=== PATIENT | female | born 1960 | race Caucasian/White ===

== ENCOUNTER → 2016-05-23 | Outpatient (CLI) | payer OTHER ==
--- NOTE | 2016-05-23 15:30 | RAD ---
Chest, 2 views, 05/23/2016: History: Shortness of breath Comparison is made to a study from 05/07/2016. The heart is mildly enlarged. The pulmonary vascularity is normal. Right lateral basilar pleural-parenchymal opacities have regressed. A previous CT study showed that these were due to partially loculated pleural fluid with underlying streaky infiltrate. There are mild persistent linear basilar opacities bilaterally, probably due to scarring. No new pulmonary abnormality is seen. The posterior costophrenic angles are sharp without evidence of significant free pleural fluid. Moderate hypertrophic spurring is present in the spine. IMPRESSION: 1. Cardiomegaly. 2. Resolving right basilar pleural/parenchymal opacities 3. No new abnormality is detected.
== END | disposition home or self-care (01) ==
LOC: RAD 14:50
PROVIDERS: ATTEND Internal Medicine Pulmonary Disease
DX: R06.02 Shortness of breath (principal); I51.7 Cardiomegaly
CPT/HCPCS: 36415; 71020; 85379

== ENCOUNTER → 2016-05-28 | Outpatient (CLI) | payer OTHER ==
[2016-05-23 19:45] VITALS: BP 217/90
== END | disposition home or self-care (01) ==
LOC: SPEC 14:51
PROVIDERS: ATTEND Nurse Practitioner Occupational Health
DX: N39.0 Urinary tract infection, site not specified (principal)
CPT/HCPCS: 87086

== ENCOUNTER → 2016-05-28 | Outpatient (CLI) | payer OTHER ==
[2016-05-23 19:45] VITALS: BP 217/90
--- NOTE | 2016-05-28 11:24 | RAD ---
EXAM: DIGITAL SCREEN BILAT W/CAD. HISTORY: Screening. COMPARISON: 03/25/2013 and 02/10/2012. FINDINGS: Digital mammography was performed. Computer-aided detection (CAD) was utilized. The breast parenchyma demonstrates scattered fibroglandular densities (tissue density B). No suspicious microcalcifications or architectural distortion is identified in either breast. Within the lateral right breast, 7 cm from nipple, there is a small asymmetry. Confident correlate on the MLO view is not identified. IMPRESSION: Asymmetry involving the lateral right breast seen only on the CC view. Recommend spot compression view for further evaluation. BI-RADS CATEGORY: 0 INCOMPLETE: NEEDS ADDITIONAL IMAGING EVALUATION AND/OR PRIOR MAMMOGRAMS FOR COMPARISON. RECOMMENDED FOLLOW-UP: ADD ADDITIONAL IMAGING PQRS compliance statement: Patient information was entered into a reminder system with a target due date for the next mammogram. Mammography is a sensitive method for finding small breast cancers, but it does not detect them all and is not a substitute for careful clinical examination. A negative mammogram does not negate a clinically suspicious finding and should not result in delay in biopsying a clinically suspicious abnormality. "Our facility is accredited by the [employer] Mammography [employer]."
== END | disposition home or self-care (01) ==
LOC: MAMMO 10:29
PROVIDERS: ATTEND Nurse Practitioner Family
DX: Z12.31 Encounter for screening mammogram for malignant neoplasm of breast (principal)
CPT/HCPCS: 77052; G0202; 77067

== ENCOUNTER → 2016-05-30 | Outpatient (CLI) | payer OTHER ==
[2016-05-23 19:45] VITALS: BP 217/90
--- NOTE | 2016-05-30 09:52 | RAD ---
EXAM: DIGITAL DIAGNOSTIC RT. HISTORY: Abnormal screening mammogram, further evaluation. COMPARISON: 05/28/2016, 03/25/2013. FINDINGS: Digital mammography was performed. Computer-aided detection (CAD) was utilized. Spot compression view of the lateral right breast with CC projection was obtained as well as a true lateral view of the right breast. The compression view demonstrates compressibility of the parenchyma. The parenchyma has a similar appearance to the 2013 study. No convincing abnormality is seen on the lateral view. IMPRESSION: No mammographic evidence of malignancy. BI-RADS CATEGORY: 1 NEGATIVE RECOMMENDED FOLLOW-UP: 12M 12 MONTH FOLLOW-UP PQRS compliance statement: Patient information was entered into a reminder system with a target due date for the next mammogram. Mammography is a sensitive method for finding small breast cancers, but it does not detect them all and is not a substitute for careful clinical examination. A negative mammogram does not negate a clinically suspicious finding and should not result in delay in biopsying a clinically suspicious abnormality. "Our facility is accredited by the [employer] Mammography Program."
== END | disposition home or self-care (01) ==
LOC: MAMMO 12:19
PROVIDERS: ATTEND Nurse Practitioner Family
DX: R92.8 Other abnormal and inconclusive findings on diagnostic imaging of breast (principal)
CPT/HCPCS: 77051; G0206; 77065

== ENCOUNTER → 2016-09-09 | Outpatient (CLI) | payer OTHER ==
[2016-05-23 19:45] VITALS: BP 217/90
[~2016-09-09] MED LIST: AMLO10TA2 PO; BUPIVACAINE MPF 0.25% 10 ML VIAL. ONE; IBUP200T43 PO; LABE200T2 PO; OMEP20TA63 PO; SPIR25TA3 PO; methylPREDNISolone ACETATE 80 MG/ML VIAL. ONE
--- NOTE | 2016-09-10 05:28 | PAIN ---
DATE OF SERVICE: INITIAL CONSULTATION FOR PAIN CLINIC CHIEF COMPLAINT: Left shoulder pain. HISTORY OF PRESENT ILLNESS: This is a 56-year-old female, who presents with a history of pain in the left shoulder for about 4 weeks, gradually increasing, not a result of any specific injury or action that she is aware of. It has been getting worse progressively, noticeable with daily activities, especially raising the arm past 90 degrees of abduction, over the head using repetitive motion such as lifting items or pulling or tugging things, and even exacerbated by picking up small items less than about 5 pounds such as her dog. The patient reports a throbbing pain, aching, cramping, getting worse at night, waking her from sleep occasionally - 2-3 times at night. It has not affected her ability to walk. It has not affected her bowel or bladder control. She is taking Motrin 800 mg 3 times daily, which has decreased pain by about 25%. The patient is doing some exercises on her own, some stretching and some physical therapy exercises, which she received from her physical therapist. She has not had any formal physical therapy at this time however, but is doing the exercises prescribed in the past. PAST MEDICAL HISTORY: Significant for hypertension and arthritis. PREVIOUS SURGERY: Included cholecystectomy and total knee replacement bilaterally. CURRENT MEDICATIONS: Include labetalol, amlodipine, Prilosec, ibuprofen, and spironolactone. ALLERGIES: THE PATIENT IS ALLERGIC TO IV DYE, AGAVE, COMPAZINE, METHADONE, AND CECLOR. FAMILY HISTORY: Significant for no major medical problems or conditions that she is aware of. SOCIAL HISTORY: The patient does not smoke, does not drink alcohol regularly, is , lives with her spouse, and lives locally. The patient is a registered nurse. REVIEW OF SYSTEMS: The patient's review of systems is positive for those items mentioned in the history of present illness. All systems reviewed and are otherwise negative. It is complete, full and well-documented on the patient's chart. PHYSICAL EXAMINATION: VITAL SIGNS: The patient's blood pressure is 142/71, pulse is 81, respirations are 18, temperature is 98.2 degrees Fahrenheit, height is 5 feet 2 inches, and weight is 220 pounds. GENERAL: The patient is awake, alert, oriented, and appropriate, very pleasant demeanor. HEENT: Head shows normocephalic, atraumatic. Extraocular movements are intact and symmetrical. Oral cavity shows mucous membranes moist and pink. Dentition is intact. NECK: Shows anterior throat supple without palpable lymphadenopathy noted. Swallow reflex is symmetrical. CHEST: Shows normal on inspection. Breath sounds are clear to auscultation bilaterally. HEART: Shows S1 and S2 clear. No murmurs auscultated. ABDOMEN: Soft, nontender, and nondistended. No palpable organomegaly with no rebound or guarding demonstrated. BACK: Shows spine grossly midline. Normal appearing thoracic kyphosis and lumbar lordotic curvature. No previous bruises, lesions, rashes, or scars are noted. The patient's upper extremities show deep tendon reflexes 2+ in the biceps and triceps tendons. Motor exam is strong with senior technical support engineer strength rated at 5/5, biceps and triceps flexion is 5/5 on the right, and approximately 4/5 on the left with biceps flexion secondary to pain in the anterior shoulder. Peripheral pulses are 2+ in the radial distribution. No peripheral edema is noted. No clubbing, no cyanosis. Upper extremities are warm and dry to touch, equal in color and appearance. The left shoulder shows significant pain with abduction past 90 degrees with significant pain in the anterior aspect and the lateral aspect of the deltoid and the lateral pectoralis region. With passive movement, this is reproduced as well with abduction past 90 degrees, anterior and posterior displacement is painful - more on the posterior displacement, but not anteriorly____ with reach activity. The patient shows some very mild tenderness over the acromioclavicular joint on the left, and the right shoulder shows full range of motion both actively and passively with no limitations and no pain elicited. IMPRESSION: 1. This is a 56-year-old female with an approximate 4-week history of increasing pain, left shoulder with range of motion as noted and activities. 2. Hypertension. 3. History of arthritis. PLAN: Options were discussed with the patient, including conservative medical management versus____ continued physical therapies, interventional techniques, and she elected to proceed with interventional techniques. We discussed a left intraarticular shoulder joint injection using fluoroscopic guidance. Risks were discussed including, but not limited to bleeding, infection, possibility of intravascular injection sequelae, spread of local anesthetic and numbness, pneumothorax, side effects of steroid medications, exposure to fluoroscopy, and poor results regarding pain control. The patient understands and wishes to proceed. The patient will return to clinic in approximately 2 weeks for followup as scheduled, and was counseled as to return appointment, activity level, and side effects to be aware of. 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 PROCEDURE: Left intraarticular shoulder joint injection using C-arm fluoroscopic guidance under sterile prep and drape using local anesthetic with 25-gauge needle. MEDICATION INJECTED: A total of 80 mg of Depo-Medrol plus a total of 3 mL of 0.25% bupivacaine after negative aspiration. CONDITION AT DISCHARGE: Stable. The patient tolerated procedure well, had no complications. DESTIN RITCHIE MD DR: BRAD/barry JOB#: [id number] / [id number]
== END | disposition home or self-care (01) ==
LOC: PNCL 12:03
PROVIDERS: ATTEND Anesthesiology
DX: M19.012 Primary osteoarthritis, left shoulder (principal); I10 Essential (primary) hypertension; M19.90 Unspecified osteoarthritis, unspecified site
CPT/HCPCS: 20610; 77002; J1040; J3490; 20605

== ENCOUNTER → 2016-09-22 | Outpatient (CLI) | payer OTHER ==
[2016-05-23 19:45] VITALS: BP 217/90
--- NOTE | 2016-09-23 03:59 | PAIN ---
DATE OF SERVICE: 09/22/2016 PROGRESS NOTE FOR PAIN CLINIC DIAGNOSES: Left shoulder joint pain with primary osteoarthritis, left shoulder joint. HISTORY OF PRESENT ILLNESS: This is a 56-year-old female, who returns for followup status post left shoulder joint injection x 1. The patient reports about 75% improvement, one injection on 09/09/2016. Reports the pain is again to return now; however, more noticeable with weightbearing left upper extremity repetitive motions even in activities of daily living such as getting dressed, putting on sleeve on the left arm is becoming more and more painful, still significantly improved from prior to previous exam, but the pain returning. Describes as aching, sharp pain radiating anywhere from 3 to 8 on a scale of 10, awakens her from sleep about twice a night. She has to reposition or take medication for. The patient reports no new motor or sensory deficits or other complaints. PHYSICAL EXAMINATION: VITAL SIGNS: Today, the patient's blood pressure is 172/81, respirations are 18, pulse 90, temperature is 98.1 degrees Fahrenheit, height is 5 feet 2 inches, weighs 220 pounds. GENERAL: The patient is awake, alert, oriented, appropriate, very pleasant demeanor. HEENT: Head shows normocephalic, atraumatic. Extraocular movements are intact, symmetrical. Oral cavity, mucous membranes are moist and pink. Dentition is intact. NECK: Shows anterior throat supple without palpable lymphadenopathy noted. Swallow reflex is symmetrical. CHEST: Shows normal on inspection. Breath sounds clear to auscultation bilaterally. HEART: Shows S1 and S2 clear. ABDOMEN: Soft, nontender, nondistended. No palpable organomegaly is noted. BACK: Shows spine grossly midline. EXTREMITIES: Upper extremities show deep tendon reflexes at 2+ in the biceps and triceps tendons. Motor exam is approximately 4 on a scale 5 with left carbon sequestration plant operator and biceps flexion, otherwise 5/5 with triceps and right side is 5/5 with carbon sequestration plant operator biceps and triceps flexion. Options were discussed with the patient at this time. The patient's old chart was reviewed as her current medication regimen updated. Current review of systems updated today as well and we will proceed with a second left shoulder joint intra-articular injection with fluoroscopic guidance. Risks were again discussed including, but not limited to bleeding, infection, possibility of epidural hematoma, subsequent neurologic compromise, dural punctures, headaches, spinal cord and/or nerve damage, side effects of steroid medication pneumothorax and poor results regarding pain control. The patient understands and wishes to proceed. The patient will return to clinic in approximately 2 weeks for followup, was counseled on return appointment, activity level and side effects to be aware of. DIAGNOSES: Primary osteoarthritis, left shoulder joint with left shoulder joint pain. PROCEDURE: Left intra-articular shoulder joint injection with fluoroscopic guidance using sterile prep and drape and local anesthesia. MEDICATION INJECTED: A total of 80 mg Depo-Medrol plus a total of 3 mL of 0.25% bupivacaine. CONDITION AT DISCHARGE: Stable. The patient tolerated procedure well, had no complications. DESTIN RITCHIE MD DR: BRAD/nts JOB#: [id number] / [id number]
== END | disposition home or self-care (01) ==
LOC: PNCL 14:39
PROVIDERS: ATTEND Anesthesiology
DX: M19.012 Primary osteoarthritis, left shoulder (principal)
CPT/HCPCS: 20610; 77002; J1040; J3490

== ENCOUNTER → 2016-10-03 | Outpatient (CLI) | payer OTHER ==
[2016-05-23 19:45] VITALS: BP 217/90
--- NOTE | 2016-10-04 02:11 | PAIN ---
DATE OF SERVICE: 10/03/2016 DIAGNOSES: Left shoulder joint pain with primary osteoarthritis, left shoulder. HISTORY OF PRESENT ILLNESS: The patient is a 56-year-old female who returns for followup status post left shoulder joint injections x 2, last seen on 09/22/2016. The patient reports that she did better. It took her few days to kick in, but about 50% improvement overall, still significant pain in the left shoulder joint itself, though with daily activities, using the arm with any repetitive motions, reaching over her head, getting dressed, putting her arms to her sleeve, etc. The patient reports pain as a 9 on a scale of 10 at its worse, 3 on ____ and 3 currently, localized to the left shoulder itself with some radiation into the anterior deltoid, anterior biceps, but only rarely. The patient reports it does not get better with rest, significantly is waking her from sleep when she lays on her left side, on her left arm or shoulder. She has repositioned to get the pain decreased. The patient reports otherwise no new motor or sensory deficits or other complaints. PHYSICAL EXAMINATION: VITAL SIGNS: The patient's blood pressure 161/104, pulse 93, respirations are 20, and temperature 98.1 degrees Fahrenheit. GENERAL: The patient is awake, alert, oriented, appropriate, very pleasant demeanor. HEENT: Head shows normocephalic and atraumatic. Extraocular movements are intact, symmetrical. Oral cavity, mucous membranes are moist and pink. Dentition is intact. NECK: Shows anterior throat supple without palpable lymphadenopathy noted. Swallow reflex is symmetrical. CHEST: Shows normal on inspection. Breath sounds clear to auscultation bilaterally. HEART: Shows S1 and S2 clear. ABDOMEN: Soft, nontender, and nondistended. BACK: The patient's upper extremities shows significant tenderness with persistence and abduction of the shoulder to 90 degrees on the left side only. Right side is full range of motion without difficulty or without pain with resistance in both abduction and anterior, posterior. The patient's deep tendon reflex is 2+ in the biceps and triceps tendons. Motor exam is strong with employee relations assistant strength rated at 5/5 and equal. Options were discussed with the patient. The patient's old chart was reviewed as her current medication regimen updated. Current review of systems updated today as well. We will proceed with left intra-articular shoulder joint injections, third in the series with fluoroscopic guidance. Risks were again discussed including, but not limited to bleeding, infection, possibility of intravascular injection sequelae, spread of local anesthetic and numbness, pneumothorax, side effects of steroid medications, exposure to fluoroscopy and poor results regarding pain control. The patient understands and wishes to proceed. The patient will return to clinic in approximately 2 weeks for followup, was counseled on return appointment to follow as side effects to be aware of. DIAGNOSIS: Primary osteoarthritis, left shoulder joint with left shoulder pain. PROCEDURE: Left intraarticular shoulder joint injection using C-arm fluoroscopic guidance under sterile prep and drape using local anesthetic. MEDICATIONS INJECTED: Depo-Medrol 80 mg total and total of 4 mL of 0.25% bupivacaine. CONDITION AT DISCHARGE: Stable. The patient tolerated the procedure well, had no complications. DESTIN RITCHIE MD DR: BRAD/barry JOB#: [id number] / [id number]
== END | disposition home or self-care (01) ==
LOC: PNCL 12:43
PROVIDERS: ATTEND Anesthesiology
DX: M19.012 Primary osteoarthritis, left shoulder (principal)
CPT/HCPCS: 20610; J1040; J3490

== ENCOUNTER → 2017-03-19 | Outpatient (CLI) | payer OTHER ==
[2016-05-23 19:45] VITALS: BP 217/90
[~2017-03-19] MED LIST changes: +IOHEXOL 180 MG/ML 10 ML VIAL. ONE
--- NOTE | 2017-03-20 11:48 | PAIN ---
DATE OF SERVICE: 03/19/2017 PROGRESS NOTE FOR PAIN CLINIC DIAGNOSES: 1. Left shoulder joint pain with osteoarthritis of the shoulder. 2. Left hip joint pain with osteoarthritis of the left hip. HISTORY OF PRESENT ILLNESS: The patient is a 56-year-old female who returns for followup status post previous shoulder joint injections, most recently on 09/23/2016. The patient did very well with near 100% improvement in the pain in her left shoulder. Her chief complaint today is left hip joint pain, which has been increasing over the past about 2 months with activity, walking, standing, change in positions, climbing stairs, especially putting all of her weight on her left leg, significant pain in the left hip and radiates to the groin on the left side with weightbearing, much better with sitting or lying down, reports it does not awaken her from sleep at all times as she laid on the left side and it can sporadically awaken her from sleep. She has been repositioning to get back to sleep. The patient reports pain is aching, dull and sometimes shooting and radiating to the groin, rates it 10 on a scale of 10 at its worst, is an 8 on average and 6 at least and is 8 a today. The patient reports no new motor or sensory deficits. No new bowel or bladder incontinence. We tried a Medrol Dosepak in the past and it did not help the pain significantly in her left hip. PAST MEDICAL HISTORY: Significant for hypertension, arthritis, cholecystectomy and bilateral total knee replacement. CURRENT MEDICATIONS: Include labetalol, spironolactone, amlodipine, omeprazole and Motrin. ALLERGIES: THE PATIENT IS ALLERGIC TO IV DYE, , COMPAZINE, METHADONE and CECLOR. FAMILY HISTORY: Significant for no major medical conditions. SOCIAL HISTORY: The patient does not smoke, does not drink alcohol regularly, lives with her spouse, is and is a registered nurse. REVIEW OF SYSTEMS: The patient's review of systems is positive for those items mentioned in history of present illness. All systems reviewed and otherwise negative. It is complete, full and well documented on the patient's chart. PHYSICAL EXAMINATION: VITAL SIGNS: The patient's blood pressure is 151/95, pulse 76, respirations 18 and temperature is 99.0 degrees Fahrenheit. GENERAL: The patient is awake, alert, oriented, appropriate and very pleasant demeanor. HEENT: Head shows normocephalic and atraumatic. Extraocular movements are intact and symmetrical. Oral cavity: Mucous membranes moist and pink. Dentition is intact. NECK: Shows anterior throat supple without palpable lymphadenopathy noted. Swallow reflex is symmetrical. CHEST: Shows normal on inspection. Breath sounds are clear to auscultation bilaterally. HEART: Shows S1 and S2 clear. No murmurs auscultated. ABDOMEN: Obese, soft, nontender and nondistended. No palpable organomegaly. No rebound or guarding demonstrated. BACK: Shows spine grossly in the midline. Slight exaggeration of thoracic kyphosis and mild flattening of lumbar lordotic curvature. No previous bruises, lesions, rashes or scars are noted. The patient has good rotation motion both the cervical spine and lumbar spine without difficulty with flexion, extension and rotation, right and left as well. The patient's lower extremities showed deep tendon reflexes at 2+ in the patellar, 1+ tendo calcaneus tendons. Previous well-healed surgical scars noted over the knees bilaterally. No peripheral edema is noted. Peripheral pulses are 1+ posterior tibial bilaterally with external rotation of the left hip shows positive Jose's sign, which is tender with external rotation and posterior displacement, right side is negative. The patient is able to stand on her toes without difficulty or loss of balance, walked with a gait favoring the left lower extremity with a limp, not using any assistive devices such as canes or walkers. Options were discussed with the patient and the patient's old chart was reviewed as well as her current medication regimen updated. Current review of systems updated today as well as noted. We will proceed with a left intra-articular hip joint injection using C-arm fluoroscopic guidance. Risks were discussed including but not limited to bleeding, infection, possibility of intravascular injection sequelae, spread of local anesthetic and numbness, side effects of steroid medications, exposure to fluoroscopy and poor results regarding pain control. The patient understands and wishes to proceed. The patient will return to clinic in approximately 2 weeks for followup, was counseled on return appointment, activity level and side effects to be aware of. Also discussed the patient's medication management and will change her from Celebrex to meloxicam as the Celebrex is not well covered with her insurance provider and is quite expensive. The patient was given instruction as well as side effects to be aware to take medication once daily. The patient will follow up as scheduled. DIAGNOSIS: Primary osteoarthritis, left hip joint with left hip joint pain. PROCEDURE: Left intra-articular hip joint injection using C-arm fluoroscopic guidance under sterile prep and drape using local anesthetic. MEDICATION INJECTED: A total of 80 mg Depo-Medrol plus 3 mL of 0.25% bupivacaine. CONDITION AT DISCHARGE: Stable. The patient tolerated procedure well, had no complications. DESTIN RITCHIE MD DR: BRAD/barry JOB#: [id number] / [id number]
== END | disposition home or self-care (01) ==
LOC: PNCL 13:36
PROVIDERS: ATTEND Anesthesiology
DX: M16.12 Unilateral primary osteoarthritis, left hip (principal); M19.012 Primary osteoarthritis, left shoulder; M19.91 Primary osteoarthritis, unspecified site; Z90.49 Acquired absence of other specified parts of digestive tract; Z88.8 Allergy status to other drugs, medicaments and biological substances; Z88.6 Allergy status to analgesic agent; Z88.1 Allergy status to other antibiotic agents; Z91.041 Radiographic dye allergy status
CPT/HCPCS: 20610; J1040; J3490; 77002

== ENCOUNTER → 2017-04-17 | Outpatient (CLI) | payer OTHER ==
[2016-05-23 19:45] VITALS: BP 217/90
[~2017-04-17] MED LIST changes: -IBUP200T43 PO; +IBUP200T44 PO; +MELO15TA23 PO
--- NOTE | 2017-04-17 20:33 | PAIN ---
DATE OF SERVICE: 04/17/2017 DIAGNOSES: 1. Left hip joint pain with primary osteoarthritis, left hip joint. 2. Left shoulder joint pain with primary osteoarthritis, left shoulder joint. HISTORY OF PRESENT ILLNESS: The patient is a 56-year-old female who returns for a followup status post left intraarticular hip joint injection on 03/19/2017. The patient did very well with this with about 75% improvement overall. The patient reports pain is returning now, however, in the left hip, worse with standing, walking, changing positions, climbing up stairs, putting any type of weight all on her left side with steps, stepping up on curbs, etc. The patient reports it is radiating to the left anterior groin as well as into the posterior hip and gluteus. The patient reports it is much worse with walking, better with sitting or lying down. It awakens her from sleep occasionally, but not every night, sometimes as early as 3 or 4 hours into sleep, though she can usually reposition and if she is not lying on her left side, it generally let her sleep through the night. The patient reports her pain is a 6-7 on average, is 9 at its worst and a 4 at its least and is a 6 today. The patient reports no new motor or sensory deficits, no new bowel or bladder incontinence or other complaints. PHYSICAL EXAMINATION: VITAL SIGNS: The patient's blood pressure is 171/80, pulse is 87, respirations 18, temperature is 98.2 degrees Fahrenheit, height is 5 feet 2 inches, weight is 220 pounds. GENERAL: The patient is awake, alert, oriented, appropriate, has a very pleasant demeanor. HEENT: Shows normocephalic, atraumatic. Extraocular movements are intact, symmetrical. Oral cavity shows mucous membranes are moist and pink. Dentition is intact. NECK: Shows anterior throat is supple without palpable lymphadenopathy noted. Swallow reflex is symmetrical. CHEST: Shows normal with inspection. Breath sounds clear to auscultation bilaterally. HEART: Shows S1, S2 clear. No murmurs auscultated. ABDOMEN: Soft, nontender, nondistended. No palpable organomegaly is noted. MUSCULOSKELETAL: Back shows spine grossly in the midline. Normal appearing thoracic kyphosis and lumbar lordotic curvature. The patient's lower extremities show deep tendon reflexes 2+ in patellar, 1+ tendo-calcaneus tendons. Motor exam is strong with 5/5 dorsiflexion and extension, quadriceps and hamstring flexion and symmetrical. The patient has a positive Jose sign on the left with external rotation of the left hip, but negative on the right. Peripheral pulses are 1+ posterior tibial. No peripheral edema is noted bilaterally. PLAN: Options were discussed with the patient. The patient's old chart was reviewed as her current medication regimen and updated. Current review of systems updated today as well. We will proceed with a left intraarticular hip joint injection with fluoroscopic guidance. Risks were again discussed including, but not limited to bleeding, infection, possibility of intravascular injection sequelae, spread of local anesthetic and numbness, side effects of steroid medication, exposure to fluoroscopy and poor results regarding pain control. The patient understands and wished to proceed. The patient to return to the clinic in approximately 2 weeks for a followup, was counseled to return appointment, activity level and side effects to be aware of. DIAGNOSIS: Primary osteoarthritis, left hip joint with hip joint pain. PROCEDURE: Left intraarticular hip joint injection using C-arm fluoroscopic guidance under sterile prep and drape using local anesthetic. MEDICATIONS INJECTED: A total of 80 mg Depo-Medrol plus total of 3 mL of 0.25% bupivacaine with negative aspiration. CONDITION AT DISCHARGE: Stable. The patient tolerated the procedure well, had no complications. DESTIN RITCHIE MD DR: BRAD/barry JOB#: [id number] / [id number]
== END | disposition home or self-care (01) ==
LOC: PNCL 09:53
PROVIDERS: ATTEND Anesthesiology
DX: M16.12 Unilateral primary osteoarthritis, left hip (principal); M19.012 Primary osteoarthritis, left shoulder; Z88.6 Allergy status to analgesic agent; Z88.1 Allergy status to other antibiotic agents; Z91.041 Radiographic dye allergy status; Z91.048 Other nonmedicinal substance allergy status
CPT/HCPCS: 20610; 77002; J1040; J3490

== ENCOUNTER → 2017-06-19 | Outpatient (CLI) | payer OTHER ==
[~2017-06-19] MED LIST changes: -AMLO10TA2 PO; +BUPIVACAINE MPF 0.25% 10 ML VIAL.; -BUPIVACAINE MPF 0.25% 10 ML VIAL. ONE; -IBUP200T44 PO; -IOHEXOL 180 MG/ML 10 ML VIAL. ONE; -LABE200T2 PO; -MELO15TA23 PO; -OMEP20TA63 PO; -SPIR25TA3 PO; +methylPREDNISolone ACETATE 80 MG/ML VIAL.; -methylPREDNISolone ACETATE 80 MG/ML VIAL. ONE
== END | disposition home or self-care (01) ==
LOC: PNCL 08:56
DX: M16.12 Unilateral primary osteoarthritis, left hip (principal); Z91.041 Radiographic dye allergy status; Z88.8 Allergy status to other drugs, medicaments and biological substances; Z91.048 Other nonmedicinal substance allergy status
CPT/HCPCS: 20610; 77002; J1040; J3490

== ENCOUNTER → 2017-07-21 | Outpatient (CLI) | payer OTHER | END | disposition home or self-care (01) | LOC: MAMMO 07:54 | DX: Z12.31 Encounter for screening mammogram for malignant neoplasm of breast (principal) | CPT/HCPCS: 77063; 77067 ==

== ENCOUNTER → 2017-10-21 | Day surgery (SDC) | payer OTHER ==
[~2017-10-21] MED LIST changes: -BUPIVACAINE MPF 0.25% 10 ML VIAL.; +CLINDAMYCIN 900MG PREMIX 50 ML IV; +DEXAMETHASONE SOD PHOS 20 MG/5 ML VIAL.; +EPINEPHrine VIAL 30 MG/30 ML VIAL; +GLYCOPYRROLATE 1 MG/5 ML VIAL.; +IV RINGERS,LACTATED 1000ML 1,000 ML IV; +LABETALOL 20 MG/4 ML DISP.SYRIN. IVP; +LIDOCAINE 1% PF 2 ML VIAL. ID; +LIDOCAINE 1% PF 5 ML VIAL.; +MIDAZOLAM HCL/PF 2 MG/2 ML VIAL.; +MORPHINE SULFATE 2 MG/ML DISP.SYRIN. IV; +MORPHINE SULFATE 4 MG/ML DISP.SYRIN. IV; +NEOSTIGMINE METHYLSULFATE 5 MG/5 ML SYRINGE.; +ONDANSETRON PF 4 MG/2 ML VIAL.; +ONDANSETRON PF 4 MG/2 ML VIAL. IV; +PHENYLEPHRINE in 0.9% NACL PF 1 MG/10 ML SYRINGE. IV; +PROCHLORPERAZINE 10 MG/2 ML VIAL.; +PROCHLORPERAZINE 10 MG/2 ML VIAL. IV; +PROPOFOL 20 ML IV; +ROCURONIUM 50 MG/5 ML VIAL.; +ROPIVacaine 0.5% PF 30 ML VIAL.; +SEVOFLURANE 61 TO 120 MINUTES. IH; +fentaNYL PF VIAL 100 MCG/2 ML VIAL; +fentaNYL PF VIAL 100 MCG/2 ML VIAL IV; -methylPREDNISolone ACETATE 80 MG/ML VIAL.
[2017-10-21] MEDS: CLINDAMYCIN 900MG PREMIX 50 ML IV (08:38)
[2017-10-21] MEDS: BUPIVACAINE 0.5% 50 ML VIAL. (09:16)
[2017-10-21] MEDS: LIDOCAINE 1% PF 30 ML VIAL. (09:17)
[2017-10-21] MEDS: PROCHLORPERAZINE 10 MG/2 ML VIAL. IV (11:31)
== END | disposition home or self-care (01) ==
LOC: SURG 06:42
DX: S46.012A Strain of muscle(s) and tendon(s) of the rotator cuff of left shoulder, initial encounter (principal); I10 Essential (primary) hypertension; Z87.442 Personal history of urinary calculi; Z90.710 Acquired absence of both cervix and uterus; Z96.651 Presence of right artificial knee joint; Z90.49 Acquired absence of other specified parts of digestive tract; Z82.49 Family history of ischemic heart disease and other diseases of the circulatory system; Z83.3 Family history of diabetes mellitus; Z82.61 Family history of arthritis; Z87.891 Personal history of nicotine dependence; Z72.89 Other problems related to lifestyle; Z79.899 Other long term (current) drug therapy; Z79.01 Long term (current) use of anticoagulants; Z91.030 Bee allergy status; Z88.8 Allergy status to other drugs, medicaments and biological substances; Z91.041 Radiographic dye allergy status; X58.XXXA Exposure to other specified factors, initial encounter; Y93.89 Activity, other specified; Y92.89 Other specified places as the place of occurrence of the external cause; Y99.8 Other external cause status
CPT/HCPCS: 29827; A7015; C1713; C1782; J0171; J0780; J1100; J2250; J2370; J2405; J2704; J2710; J2795; J3010; J3490

== ENCOUNTER 2017-12-08 08:15 | Emergency (ER) | payer OTHER ==
[2017-12-08] MEDS: GLUCAGON,HUMAN RECOMBINANT 1 MG/ML VIAL. IV (09:29)
[2017-12-08] MEDS: LABETALOL 20 MG/4 ML DISP.SYRIN. IVP (09:53)
[2017-12-08 10:35] LABS: BASO # 0.1 x10^3/uL (0.0-0.2); BASO % 1 % (0-3); EOS # 0.1 x10^3/uL (0.0-0.7); EOS % 1 % (0-3); HEMATOCRIT 41.1 % (36.0-47.0); HEMOGLOBIN 14.2 g/dL (12.0-15.5); LYMPH # 1.3 x10^3/uL (1.0-4.8); LYMPH % 9 % (24-48); MEAN CORPUSCULAR HEMOGLOBIN 31 pg (25-35); MEAN CORPUSCULAR HGB CONC 35 g/dL (31-37); MEAN CORPUSCULAR VOLUME 89 fL (79-100); MONO # 0.5 x10^3/uL (0.0-1.1); MONO % 4 % (0-9); NEUT # 12.1 x10^3uL (1.8-7.7); NEUT % 86 % (31-73); PLATELET COUNT 407 x10^3/uL (140-400); RED CELL DISTRIBUTION WIDTH 14.3 % (11.5-14.5); WHITE BLOOD COUNT 14.1 x10^3/uL (4.0-11.0)
[2017-12-08 10:47] LABS: ADD MAN DIFF? YES
[2017-12-08 10:50] LABS: ANION GAP 12 (6-14); BLOOD UREA NITROGEN 11 mg/dL (7-20); BUN/CREATININE RATIO 16 (6-20); CALCIUM 9.8 mg/dL (8.5-10.1); CARBON DIOXIDE 24 mmol/L (21-32); CHLORIDE 105 mmol/L (98-107); CREATININE 0.7 mg/dL (0.6-1.0); GFR 85.6; GLUCOSE 151 mg/dL (70-99); POTASSIUM 3.6 mmol/L (3.5-5.1); SODIUM 141 mmol/L (136-145)
[2017-12-08 10:52] LABS: ALBUMIN 4.1 g/dL (3.4-5.0); ALBUMIN/GLOBULIN RATIO 0.9 (1.0-1.7); ALK PHOS 99 U/L (46-116); ALT (SGPT) 42 U/L (14-59); AST (SGOT) 24 U/L (15-37); LIPASE 120 U/L (73-393); MAGNESIUM 1.8 mg/dL (1.8-2.4); PARTIAL THROMBOPLASTIN TIME 25 SEC (24-38); PROTHROMBIN TIME PATIENT 12.3 SEC (11.7-14.0); TOTAL BILIRUBIN 0.4 mg/dL (0.2-1.0); TOTAL PROTEIN 8.5 g/dL (6.4-8.2)
[2017-12-08 13:00] LABS: % BASOS 1 % (0-3); % LYMPHS 9 % (24-48); % MONOS 2 % (0-10); % SEGS 88 % (35-66); PLT ESTIMATE ADEQUATE (ADEQUATE)
== END 2017-12-08 11:33 | disposition short-term general hospital (02) ==
LOC: ER 11:33
DX: T18.128A Food in esophagus causing other injury, initial encounter (principal); K22.2 Esophageal obstruction; J45.909 Unspecified asthma, uncomplicated; I10 Essential (primary) hypertension; Z87.442 Personal history of urinary calculi; Z90.49 Acquired absence of other specified parts of digestive tract; Z88.8 Allergy status to other drugs, medicaments and biological substances; Z91.030 Bee allergy status; Z91.041 Radiographic dye allergy status; X58.XXXA Exposure to other specified factors, initial encounter; Y93.89 Activity, other specified; Y99.8 Other external cause status; Y92.89 Other specified places as the place of occurrence of the external cause
CPT/HCPCS: 36415; 71046; 80053; 83690; 83735; 85007; 85025; 85610; 85730; 96374; 96375; 99285-25; J1610; J3490

== ENCOUNTER → 2017-12-08 | Day surgery (SDC) | payer OTHER ==
[~2017-12-08] MED LIST changes: -CLINDAMYCIN 900MG PREMIX 50 ML IV; -DEXAMETHASONE SOD PHOS 20 MG/5 ML VIAL.; -EPINEPHrine VIAL 30 MG/30 ML VIAL; -GLYCOPYRROLATE 1 MG/5 ML VIAL.; -IV RINGERS,LACTATED 1000ML 1,000 ML IV; -LABETALOL 20 MG/4 ML DISP.SYRIN. IVP; -LIDOCAINE 1% PF 2 ML VIAL. ID; -LIDOCAINE 1% PF 5 ML VIAL.; +LIDOCAINE 2% PF Vial for OR 5 ML VIAL.; -MIDAZOLAM HCL/PF 2 MG/2 ML VIAL.; -MORPHINE SULFATE 2 MG/ML DISP.SYRIN. IV; -MORPHINE SULFATE 4 MG/ML DISP.SYRIN. IV; -NEOSTIGMINE METHYLSULFATE 5 MG/5 ML SYRINGE.; -ONDANSETRON PF 4 MG/2 ML VIAL.; -ONDANSETRON PF 4 MG/2 ML VIAL. IV; -PHENYLEPHRINE in 0.9% NACL PF 1 MG/10 ML SYRINGE. IV; -PROCHLORPERAZINE 10 MG/2 ML VIAL.; -PROCHLORPERAZINE 10 MG/2 ML VIAL. IV; -ROCURONIUM 50 MG/5 ML VIAL.; -ROPIVacaine 0.5% PF 30 ML VIAL.; -SEVOFLURANE 61 TO 120 MINUTES. IH; -fentaNYL PF VIAL 100 MCG/2 ML VIAL; -fentaNYL PF VIAL 100 MCG/2 ML VIAL IV
[2017-12-08] MEDS: IV RINGERS,LACTATED 1000ML 1,000 ML IV (12:00)
== END ==
LOC: SURG 11:45
DX: K22.2 Esophageal obstruction (principal); K21.9 Gastro-esophageal reflux disease without esophagitis; K31.89 Other diseases of stomach and duodenum; E66.9 Obesity, unspecified; I10 Essential (primary) hypertension; Z72.89 Other problems related to lifestyle; Z87.891 Personal history of nicotine dependence; Z90.710 Acquired absence of both cervix and uterus; Z90.49 Acquired absence of other specified parts of digestive tract; Z88.8 Allergy status to other drugs, medicaments and biological substances; Z88.1 Allergy status to other antibiotic agents; Z91.030 Bee allergy status; Z91.041 Radiographic dye allergy status; Z87.442 Personal history of urinary calculi; Z96.651 Presence of right artificial knee joint; Z79.899 Other long term (current) drug therapy; Z82.61 Family history of arthritis; Z83.3 Family history of diabetes mellitus; Z82.49 Family history of ischemic heart disease and other diseases of the circulatory system
CPT/HCPCS: 43235; J2001; J2704

== ENCOUNTER → 2018-04-26 | Outpatient (CLI) | payer OTHER ==
[2017-12-08 12:35] VITALS: BP 150/65
[~2018-04-26] MED LIST changes: +AMLO10TA6 PO; +IBUP200T44 PO; +LABE200T4 PO; -LIDOCAINE 2% PF Vial for OR 5 ML VIAL.; +MELO15TA23 PO; +OMEP20TA63 PO; -PROPOFOL 20 ML IV; +SPIR25TA5 PO
--- NOTE | 2018-04-26 16:47 | RAD ---
MR of the left shoulder Indication: LEFT SHOULDER PAIN X 1 WEEK POST FALL, LROM, HX OF SHOULDER SX, PRIOR MRI. Comparison: October 01, 2017. Technique: Standard multiplanar sequences are obtained. Findings: Artifact: Mild motion degradation. Acromioclavicular joint:Intact. Rotator cuff: * Supraspinatus-infraspinatus tendon: [place] screws are identified at the greater tuberosity humeral head compatible with rotator cuff repair. The tendons are mildly heterogeneous and thickened, but no evidence of significant residual/recurrent tear. * Subscapularis tendon: Appears somewhat deficient or incomplete, suggesting partial tear. * Muscle bulk: Mild atrophy, appears similar * Subacromial subdeltoid bursa: Trace effusion. Fluid: No significant glenohumeral effusion. Glenohumeral cartilage: No acute defect or advanced DJD. Labrum: No evidence of labral detachment. Biceps tendon: Poorly visualized. Bones: No lesion or acute fracture. Soft tissue: No acute findings.. Impression: 1. Rotator cuff repair. No evidence of significant recurrent supraspinatus-infraspinatus tendon tear. Subscapularis tendon deficiency appears similar. 2. Poorly visualized biceps tendon. Electronically signed by: Samson Tomlin MD (04/26/2018 4:43 PM) [id number]
== END | disposition home or self-care (01) ==
LOC: MRI 15:52
PROVIDERS: ATTEND Orthopaedic Surgery Sports Medicine
DX: M25.512 Pain in left shoulder (principal); M62.512 Muscle wasting and atrophy, not elsewhere classified, left shoulder
CPT/HCPCS: 73221

== ENCOUNTER → 2018-07-28 | Outpatient (CLI) | payer OTHER ==
[2017-12-08 12:35] VITALS: BP 150/65
[~2018-07-28] MED LIST changes: -AMLO10TA6 PO; +AMLO10TA8 PO; +BUPIVACAINE MPF 0.25% 10 ML VIAL. ONE; +IOHEXOL 180 MG/ML 10 ML VIAL. ONE; +methylPREDNISolone ACETATE 80 MG/ML VIAL. ONE
--- NOTE | 2018-07-29 03:09 | PAIN ---
DATE OF SERVICE: 07/28/2018 PROGRESS NOTE FOR PAIN CLINIC DIAGNOSIS: Left hip joint pain with primary osteoarthritis. HISTORY OF PRESENT ILLNESS: The patient is a 58-year-old female who returns for followup status post hip joint injections, last seen on 06/19/2017. The patient did very well with near 100% improvement after her last injection. She had 2 injections in April 2017 and then again in June 2017 with near 100% improvement for about a year. The pain has returned now over the past month or so in the left hip mainly with standing, walking, changing positions, especially stepping up on a stair or curb, putting all the weight on her left leg and hip. The patient reports significant pain radiating to the left groin as well as into the left lateral thigh into the gluteus itself. The patient reports it is much better with sitting or lying down, even standing on her right leg to decrease the pain, can decrease it significantly. The patient reports it awakens her from sleep occasionally, but not every night and it started over the last month or so. The patient reports it is aching and dull, becoming more constant, shooting and sharp as well in the hip joints with weightbearing. The patient reports it is an 8 on a scale of 10 at its worst, 7 on average and a 4 at its least and is a 4 today. PHYSICAL EXAMINATION: VITAL SIGNS: The patient's blood pressure is 157/106, pulse 96, respirations 20, temperature 98.3 degrees Fahrenheit. GENERAL: The patient is awake, alert, oriented, appropriate, very pleasant demeanor. HEENT: Shows normocephalic, atraumatic. Extraocular movements are intact and symmetrical. Oral cavity, mucous membranes moist and pink. Dentition is intact. NECK: Shows anterior throat supple without palpable lymphadenopathy noted. Swallow reflex is symmetrical. CHEST: Shows normal on inspection. Breath sounds are clear to auscultation bilaterally. HEART: Shows S1, S2 clear. No murmurs auscultated. ABDOMEN: Soft, nontender, nondistended. No palpable organomegaly is noted. No rebound or guarding demonstrated. BACK: Shows spine grossly in the midline. Normal appearing thoracic kyphosis and lumbar lordotic curvature. Lumbar paraspinous muscle shows symmetrical on inspection, as does thoracic paraspinous musculature. The patient shows good rotational motion of the lumbar spine both laterally as well as extension and flexion without significant pain reported. The patient's left hip shows significant tenderness with positive Jose's sign with external rotation in supine position with the left hip only, right side is nontender. Gaenslen's maneuver, however, is negative bilaterally as well. Peripheral pulses are 1+ posterior tibial. No peripheral edema is noted in the lower extremities. Options were discussed with the patient. The patient's old chart was reviewed as her current medication regimen updated. Current review of systems updated today as well. We will proceed with a left intraarticular hip joint injection today with fluoroscopic guidance. Risks were again discussed including, but not limited to, bleeding, infection, possibility of intravascular injection sequelae, spread of local anesthetic and numbness, side effects of steroid medication as well as poor results regarding pain control and exposure of fluoroscopy. The patient understands and wished to proceed. The patient will return to the clinic in approximately 1 month or sooner if necessary. DIAGNOSES: Left hip joint pain with primary osteoarthritis, left hip joint. PROCEDURE: Left intraarticular hip joint injection using C-arm fluoroscopic guidance under sterile prep and drape using local anesthetic. MEDICATION INJECTED: A total of 80 mg of Depo-Medrol plus total of 3 mL of 0.25% bupivacaine after negative aspiration. CONDITION ON DISCHARGE: Stable. The patient tolerated the procedure well, had no complications. DESTIN RITCHIE MD DR: BRAD/barry JOB#: [id number] / [id number]
== END | disposition home or self-care (01) ==
LOC: PNCL 14:33
PROVIDERS: ATTEND Anesthesiology
DX: M16.12 Unilateral primary osteoarthritis, left hip (principal); Z88.1 Allergy status to other antibiotic agents; Z88.5 Allergy status to narcotic agent; Z88.8 Allergy status to other drugs, medicaments and biological substances; Z91.030 Bee allergy status; Z91.041 Radiographic dye allergy status
CPT/HCPCS: 20610; 77002; J1040; J3490; Q9965

== ENCOUNTER → 2018-08-11 | Outpatient (CLI) | payer OTHER ==
[2017-12-08 12:35] VITALS: BP 150/65
[~2018-08-11] MED LIST changes: +methylPREDNISolone ACETATE 40 MG/ML VIAL. ONE
--- NOTE | 2018-08-12 06:47 | PAIN ---
DATE OF SERVICE: 08/11/2018 PROGRESS NOTE FOR PAIN CLINIC DIAGNOSIS: Left hip joint pain with primary osteoarthritis, left hip joint. HISTORY OF PRESENT ILLNESS: The patient is a 58-year-old female who returns for followup status post left intraarticular hip joint injection, last seen on 07/28/2018, the patient did very well with this, prior to that was 06/19/2018, also did very well with near 100% improvement and this last time has had about 50% improvement. The patient reports the pain is returning with walking, standing, putting all her weight on her left leg, pain in the hip itself, posterior gluteus as well as radiating to the left groin to fairly significant extent as well as in the left hip again, is aching and dull in quality, sometimes radiating to the left groin, worse with standing, going upstairs, putting all of her weight on her left foot and left leg such as on a curb or stepping up, even climbing hills is becoming more painful on the left side. The patient reports the pain is 8 on a scale of 10 at its worst, 3 at its least, 5 on average and is 5 today. The patient reports no new motor or sensory deficits, no new changes or other complaints. The patient reports she has been sleeping better at night, but it does awaken her if she lies on her left side. She was increasing her distance walking with much greater ease and comfort after her last injection, but the pain has only about 50% improved since that time. PHYSICAL EXAMINATION: VITAL SIGNS: Today, the patient's blood pressure is 137/72, pulse 81, respirations are 16, temperature is 98.2 degrees Fahrenheit. GENERAL: The patient is awake, alert, oriented, appropriate, very pleasant demeanor. HEENT: Head shows normocephalic, atraumatic. Extraocular movements are intact and symmetrical. Oral cavity: Mucous membranes moist and pink. Dentition is intact. NECK: Shows anterior throat supple without palpable lymphadenopathy noted. Swallow reflex symmetrical. CHEST: Shows normal on inspection. Breath sounds are clear to auscultation bilaterally. HEART: Shows S1, S2 clear. No murmurs auscultated. ABDOMEN: Soft, nontender, nondistended. No palpable organomegaly is noted. No rebound or guarding demonstrated. BACK: Shows spine grossly in the midline. Normal appearing thoracic kyphosis and lumbar lordotic curvature. Lumbar paraspinous muscle shows symmetrical on inspection, with palpation shows some mild tenderness, but only diffusely without radiation. EXTREMITIES: The patient's lower extremities show deep tendon reflexes at 1+ patellar and tendo calcaneus tendons are equal. Motor exam is strong with 5/5 dorsiflexion, extension, quadriceps and hamstring flexion and symmetrical. Peripheral pulses are 1+ posterior tibial. No peripheral edema is noted. The patient does continue to have a positive Jose's sign on the left side with external rotation of the left hip with knee flexion, right side is negative. Peripheral pulses are 1+ posterior tibial. No peripheral edema is noted bilaterally. Options were discussed with the patient. The patient's old chart was reviewed as her current medication regimen updated. Current review of systems updated today as well. We will proceed with a left intraarticular hip joint injection today with fluoroscopic guidance. Risks were again discussed including, but not limited to, bleeding, infection, possibility of intravascular injection sequelae, spread of local anesthetic and numbness, side effects of steroid medication, exposure to fluoroscopy and poor results regarding pain control. The patient understands and wished to proceed. The patient to return to clinic in approximately 2 weeks for followup, was counseled on return appointment, activity level and side effects to be aware of. DIAGNOSIS: Left hip joint pain with left primary osteoarthritis, left hip joint. PROCEDURE: Left intraarticular hip joint injection using C-arm fluoroscopic guidance under sterile prep and drape using local anesthetic. MEDICATION INJECTED: A total of 80 mg Depo-Medrol plus 3 mL of 0.25% bupivacaine. CONDITION AT DISCHARGE: Stable. The patient tolerated the procedure well, had no complications. DESTIN RITCHIE MD DR: BRAD/barry JOB#: [id number] / [id number]
== END | disposition home or self-care (01) ==
LOC: PNCL 11:18
PROVIDERS: ATTEND Anesthesiology
DX: M16.12 Unilateral primary osteoarthritis, left hip (principal); Z88.5 Allergy status to narcotic agent; Z91.030 Bee allergy status; Z91.041 Radiographic dye allergy status; Z88.8 Allergy status to other drugs, medicaments and biological substances
CPT/HCPCS: 20610; 77002; J1040; J3490; J1030; Q9965